=== PATIENT | female | born 1940 | race Caucasian/White ===

== ENCOUNTER → 2018-01-19 | Outpatient (CLI) | END | disposition home or self-care (01) ==

== ENCOUNTER → 2018-03-02 | Outpatient (CLI) | END | disposition home or self-care (01) ==

== ENCOUNTER → 2018-03-02 | Outpatient (CLI) | END | disposition home or self-care (01) ==

== ENCOUNTER 2018-03-12 06:38 | Inpatient (IN) | END 2018-03-13 17:26 | disposition home health service (06) | DRG 470 ==

== ENCOUNTER → 2018-03-23 | Outpatient (CLI) | END | disposition home or self-care (01) ==

== ENCOUNTER → 2018-04-20 | Outpatient (CLI) | END | disposition home or self-care (01) ==